=== PATIENT | female | born 1965 | race Caucasian/White ===

== ENCOUNTER 2021-07-10 05:49 | Day surgery (SDC) | payer OTHER ==
[2021-07-09 15:54] LABS: BASOPHILS # (AUTO) 0.1 X10'3 (0-0.2); BASOPHILS % (AUTO) 0.9 % (0-1); EOSINOPHILS # (AUTO) 0.4 X10'3 (0-0.9); EOSINOPHILS % (AUTO) 4.4 % (0-6); HEMOGLOBIN 15.2 g/dl (12.0-16.0); LYMPHOCYTES # (AUTO) 2.7 X10'3 (1.1-4.8); LYMPHOCYTES % (AUTO) 33.9 % (21-51); MEAN CORPUSCULAR HGB CONC 35.2 g/dL (33.0-36.5); MEAN CORPUSCULAR VOLUME 96.6 FL (78-98); MEAN PLATELET VOLUME 7.2 FL (7.4-10.4); MONOCYTES % (AUTO) 12.7 % (2-12); NEUTROPHILS # (AUTO) 3.8 X10'3 (1.8-7.7); NEUTROPHILS % (AUTO) 48.1 % (42-75); PLATELET COUNT 349 X10'3 (140-440); RED BLOOD COUNT 4.46 X10'6 (4.20-5.60); RED CELL DISTRIBUTION WIDTH 12.3 % (11.5-14.5); WHITE BLOOD COUNT 7.9 X10'3 (4.5-11.0)
[2021-07-09 16:05] LABS: PARTIAL THROMBOPLASTIN TIME 28 SECONDS (22-32)
[2021-07-09 16:07] LABS: ALBUMIN 4.3 G/DL (3.4-5.0); ANION GAP 7 (8-16); BLOOD UREA NITROGEN 9 MG/DL (7-18); BUN/CREATININE RATIO 9.1 (6.6-38.0); CALCIUM 9.6 MG/DL (8.5-10.1); CHLORIDE 95 MMOL/L (99-107); CREATININE 0.99 MG/DL (0.40-0.90); GLUCOSE 105 MG/DL (70-104); SODIUM 133 MMOL/L (135-145); TOTAL CARBON DIOXIDE 30.9 MMOL/L (24-32); eGFR 58 ML/MIN
[2021-07-09 16:12] LABS: POTASSIUM 2.9 MMOL/L (3.5-5.1)
--- NOTE | 2021-07-09 16:35 | NUR ---
Critical K+ 2.[address] Peace notified of this. New telephone order to call in 40meq PO x2 doses. and repeat BMP to be done tomorrow am prior to heart cath procedure. Patient notified via telephone of this. RX called into [facility].
[2021-07-10] VITALS (10 sets, daily range): BP systolic 107–123; BP diastolic 64–80
[~2021-07-10] VITALS: Ht 160 cm; Wt 67.7 kg
[~2021-07-10 05:49] MED LIST: BENA1TAB19 PO; CYAN500T71 PO; MULT-1085 PO; NORE-106 PO; OMEGA PO; PROP60TA19 PO; TRAZ-251 PO; VENL-190 PO
[2021-07-10] MEDS ORDERED: LORazepam 0.5 MG tablet PO PRN (06:15)
[2021-07-10] MEDS ORDERED: normal saline 1,000 ML IV SCH (06:15)
[2021-07-10] MEDS ORDERED: diphenhydrAMINE 25mg capsule PO PRN (06:15)
[2021-07-10] MEDS ORDERED: CYCL-1 PO (06:43)
[2021-07-10] MEDS ORDERED: INDLA60C PO (06:43)
[2021-07-10] MEDS ORDERED: OMEP-50 PO (06:43)
[2021-07-10] MEDS ORDERED: ATOR20TA66 PO (06:43)
[2021-07-10] MEDS ORDERED: VENL75CA61 PO (06:43)
[2021-07-10] MEDS ORDERED: LIDOcaine/PRILOcaine 5gm cream TP ONE (07:25)
[2021-07-10] MEDS ORDERED: verapamil 2.5 mg/ml inj IV ONE (07:35)
[2021-07-10] MEDS ORDERED: LIDOcaine 1% (10mg/ml)w/preservative injection 20ml MDV ONE (07:35)
[2021-07-10] MEDS ORDERED: fentaNYL/PF 50MCG/1 ML 2ML syringe ONE (07:35)
[2021-07-10] MEDS ORDERED: midazolam 1 mg/ML 2ml injection ONE (07:35)
[2021-07-10] MEDS ORDERED: nitroGLYCERIN-Tridil 50MG/D5W 250 ML IV ONE (07:35)
[2021-07-10] MEDS ORDERED: iohexol 350MG/ML 100ml bottle IV ONE (07:36)
[2021-07-10] MEDS ORDERED: iohexol 350 MG/ML 50ML vial IV ONE (07:36)
[2021-07-10] MEDS ORDERED: heparin 1,000unit/ml 10ml vial 10 ML ONE (07:36)
[2021-07-10 07:59] LABS: ALBUMIN 4.5 G/DL (3.4-5.0); ANION GAP 12 (8-16); BLOOD UREA NITROGEN 10 MG/DL (7-18); CALCIUM 9.6 MG/DL (8.5-10.1); CHLORIDE 101 MMOL/L (99-107); GLUCOSE 115 MG/DL (70-104); POTASSIUM 3.8 MMOL/L (3.5-5.1); SODIUM 138 MMOL/L (135-145); TOTAL CARBON DIOXIDE 25.4 MMOL/L (24-32); eGFR 57 ML/MIN
[2021-07-10] MEDS ORDERED: potassium Cl 20 mEq SR tablet PO ONE (09:35)
[2021-07-10] MEDS ORDERED: FLU VACC QS2021-22(6MOS UP)/PF 60 MCG/0.5 ML SYRINGE IM ONE (10:00)
== END 2021-07-10 13:45 | disposition home or self-care (01) ==
LOC: SSTAY O 05:49
PROVIDERS: ATTEND Internal Medicine Cardiovascular Disease
DX: R07.89 Other chest pain (principal); R06.02 Shortness of breath; I10 Essential (primary) hypertension; E78.5 Hyperlipidemia, unspecified; F41.9 Anxiety disorder, unspecified; K21.9 Gastro-esophageal reflux disease without esophagitis; M19.90 Unspecified osteoarthritis, unspecified site; M54.31 Sciatica, right side; Z72.89 Other problems related to lifestyle; Z79.899 Other long term (current) drug therapy; Z98.890 Other specified postprocedural states; Z86.010 Personal history of colon polyps; Z85.828 Personal history of other malignant neoplasm of skin; Z85.048 Personal history of other malignant neoplasm of rectum, rectosigmoid junction, and anus; Z82.49 Family history of ischemic heart disease and other diseases of the circulatory system; Z80.0 Family history of malignant neoplasm of digestive organs
CPT/HCPCS: 36415; 76937; 80048; 83880; 85025; 85610; 85730; 93005; 93458; 99152; 99153; C1769; C1894; J1644; J2250; J3010; J3490; J7030; Q0163; Q9967; A4620; A5120; A6258